=== PATIENT | male | born 1940 | race African-American/Black ===

== ENCOUNTER → 2017-05-30 | Outpatient (CLI) | payer MEDICARE, MEDICAID ==
[~2017-05-30] MED LIST: AMLO10TA80 PO; ASPI-1159 PO; FERR-63 PO; METF10002 PO; PRAV40TA58 PO
== END | disposition home or self-care (01) ==
LOC: NM 08:23
PROVIDERS: ATTEND Family Medicine Adult Medicine
DX: R16.0 Hepatomegaly, not elsewhere classified (principal)
CPT/HCPCS: 78205; 78216; A9560

== ENCOUNTER → 2017-11-23 | Outpatient (CLI) | payer MEDICARE, MEDICAID ==
[~2017-11-23] MED LIST changes: +METF-416 PO; -METF10002 PO
== END | disposition home or self-care (01) ==
LOC: NM 08:43
PROVIDERS: ATTEND Family Medicine Adult Medicine
DX: K76.89 Other specified diseases of liver (principal)
CPT/HCPCS: 78205; 78216; A9560

== ENCOUNTER 2018-08-07 08:21 | Day surgery (SDC) | payer MEDICARE, MEDICAID ==
[~2018-08-07] VITALS: Ht 175.3 cm; Wt 84.8 kg
[2018-08-07] VITALS (10 sets, daily range): BP systolic 169–176; BP diastolic 85–94
[~2018-08-07 08:21] MED LIST changes: -METF-416 PO; +METF10004 PO
[2018-08-07] MEDS ORDERED: FENTANYL CITRATE/PF 50MCG/ML 2ML VIAL ONE (08:35)
[2018-08-07] MEDS ORDERED: SODIUM BICARBONATE 4% (2.4MEQ) 5ML VIAL IV ONE (09:08)
[2018-08-07] MEDS ORDERED: LIDOCAINE HCL 1% 20ML VIAL (Pyxis) INJ ONE (09:08)
[2018-08-07] MEDS ORDERED: FENTANYL CITRATE/PF 50MCG/ML 2ML VIAL IV ONE (09:45)
[2018-08-07] MEDS ORDERED: HYDROCODONE/ACETAMINOPHEN 5/325MG TABLET PO PRN (09:45)
[2018-08-07 13:24] LABS: HEMATOCRIT 35.5 % (42.0-52.0); HEMOGLOBIN 12.2 g/dL (14.0-18.0)
== END 2018-08-07 14:00 | disposition home or self-care (01) ==
LOC: RAD 08:21
PROVIDERS: ATTEND Family Medicine Adult Medicine
DX: C22.8 Malignant neoplasm of liver, primary, unspecified as to type (principal); Z79.899 Other long term (current) drug therapy; Z98.890 Other specified postprocedural states; Z79.82 Long term (current) use of aspirin
CPT/HCPCS: 36415; 47000; 76942; 82962; 85014; 85018; 88307; J3010; J3490; J7050

== ENCOUNTER 2019-03-04 01:05 | Inpatient (IN) | payer MEDICARE, MEDICAID ==
[~2019-03-04] VITALS: Ht 175.3 cm; Wt 85.7 kg
[~2019-03-04 01:05] MED LIST changes: +METF-416 PO; -METF10004 PO
[2019-03-04 02:51] LABS: BASOPHILS % 0.7 % (0.0-2.0); EOSINOPHILS % 2.6 % (0.0-5.0); HEMATOCRIT. 34.9 % (42.0-52.0); HEMOGLOBIN. 11.6 g/dL (14.0-18.0); LYMPHOCYTES % 14.5 % (20.0-50.0); MEAN CORPUSCULAR HEMOGLOBIN 29.3 pg (28.0-32.0); MEAN CORPUSCULAR VOLUME 88.3 fL (80.0-94.0); MEAN PLATELET VOLUME 6.8 fl (7.4-10.4); MONOCYTES % 10.6 % (2.0-8.0); NEUTROPHILS % 71.6 % (40.0-76.0); PLATELET 251 x1000/uL (130-400); RED BLOOD CELL COUNT 3.95 mill/uL (4.7-6.1); RED CELL DISTRIBUTION WIDTH 14.3 % (11.6-14.6)
[2019-03-04 02:56] LABS: CHLORIDE 108 mEq/L (98-107)
[2019-03-04 03:01] LABS: INR 1.1; PROTHROMBIN TIME 11.3 sec (9.6-11.0)
[2019-03-04] MEDS ORDERED: VANCOMYCIN 1 G PREMIX 200 ML IV SCH (04:15)
[2019-03-04] MEDS ORDERED: PIPERACILLIN/TAZOBACTAM 3.375GM/50ML PREMIX IV ONE (04:15)
[2019-03-04] MEDS ORDERED: DOCUSATE SODIUM 100MG CAPSULE PO PRN (05:15)
[2019-03-04] MEDS ORDERED: ACETAMINOPHEN 325MG TABLET PO PRN (05:15)
[2019-03-04] MEDS ORDERED: HYDROMORPHONE HCL/PF 2MG/ML CPJ IV PRN (05:15)
[2019-03-04] MEDS ORDERED: ONDANSETRON HCL 4MG/2ML INJ IV PRN (05:15)
[2019-03-04 08:00] VITALS: BP 158/73
[2019-03-04] MEDS ORDERED: PIPERACILLIN/TAZ 3.375G PREMIX 50 ML IV SCH (08:00)
[2019-03-04] MEDS: DEXT 5%/0.45% NACL 1000ML 1,000 ML IV SCH (08:46)
[2019-03-04] MEDS: IPRATROPIUM/ALBUTEROL 0.5-3(2.5)MG/3ML NEB INH SCH ×3 (09:41→21:11)
[2019-03-04] MEDS ORDERED: DEXTROSE 50% WATER 50ML SYRINGE IV PRN (11:15)
[2019-03-04] MEDS: AMLODIPINE 10MG TABLET PO SCH (11:33)
[2019-03-04] MEDS ORDERED: HYDR-4009 PO (11:46)
[2019-03-04] MEDS ORDERED: LEVO750T46 MT (11:46)
[2019-03-04] MEDS ORDERED: HYDR-4135 MT (11:46)
[2019-03-04] MEDS ORDERED: BENA40TA9 MT (11:46)
[2019-03-04] MEDS ORDERED: SITA50TA3 MT (11:46)
[2019-03-04 12:01] VITALS: BP 153/73
[2019-03-04] MEDS: BLOOD SUGAR DIAGNOSTIC STRIP TEST SCH ×3 (12:20→21:10)
[2019-03-04] MEDS: FERROUS SULFATE 325MG TABLET PO SCH ×2 (14:44→18:56)
[2019-03-04] MEDS: INSULIN LISPRO 100 UNITS/ML SUBCUT SCH ×3 (14:46→21:53)
[2019-03-04 14:51] LABS: CLARITY URINE CLEAR (CLEAR); COLOR URINE YELLOW (YELLOW); KETONES URINE NEGATIVE (NEGATIVE); LEUKOCYTE ESTERASE URINE NEGATIVE (NEGATIVE); NITRITE URINE NEGATIVE (NEGATIVE); OCCULT BLOOD URINE NEGATIVE (NEGATIVE); PH URINE 5.5 (4.5-8.0); PROTEIN URINE TRACE (NEGATIVE); SPECIFIC GRAVITY URINE 1.011 (1.005-1.030); UROBILINOGEN URINE 0.2 E.U./dL (0.2-1.0)
[2019-03-04 16:18] VITALS: BP 169/75
[2019-03-04] MEDS ORDERED: VANCOMYCIN 1250MG in DEXTROSE 5% WATER 250ML IV SCH (18:00)
[2019-03-04] MEDS: METFORMIN HCL 500MG TABLET PO SCH (18:57)
[2019-03-04 20:00] VITALS: BP 166/87
[2019-03-04] MEDS: ATORVASTATIN CALCIUM 40MG TABLET PO SCH (21:10)
[2019-03-05] VITALS: BP 163/83
[2019-03-05] MEDS: IPRATROPIUM/ALBUTEROL 0.5-3(2.5)MG/3ML NEB INH SCH ×5 (01:27→21:21)
[2019-03-05 04:00] VITALS: BP 154/71
[2019-03-05] MEDS: DEXT 5%/0.45% NACL 1000ML 1,000 ML IV SCH ×2 (05:40→16:45)
[2019-03-05 06:21] LABS: BASOPHILS % 0.3 % (0.0-2.0); EOSINOPHILS % 2.8 % (0.0-5.0); HEMATOCRIT. 35.4 % (42.0-52.0); HEMOGLOBIN. 11.8 g/dL (14.0-18.0); LYMPHOCYTES % 13.5 % (20.0-50.0); MEAN CORPUSCULAR HEMOGLOBIN 29.5 pg (28.0-32.0); MEAN CORPUSCULAR VOLUME 88.9 fL (80.0-94.0); MEAN PLATELET VOLUME 7.1 fl (7.4-10.4); MONOCYTES % 10.5 % (2.0-8.0); NEUTROPHILS % 72.9 % (40.0-76.0); PLATELET 231 x1000/uL (130-400); RED BLOOD CELL COUNT 3.98 mill/uL (4.7-6.1); RED CELL DISTRIBUTION WIDTH 14.5 % (11.6-14.6)
[2019-03-05] MEDS: BLOOD SUGAR DIAGNOSTIC STRIP TEST SCH ×4 (06:30→20:54)
[2019-03-05 06:45] LABS: CHLORIDE 107 mEq/L (98-107)
[2019-03-05 06:59] LABS: LDL CHOLESTEROL 95 mg/dL (5-100)
[2019-03-05 07:04] LABS: HDL CHOLESTEROL 49 mg/dL (40-59)
[2019-03-05] MEDS: INSULIN LISPRO 100 UNITS/ML SUBCUT SCH ×4 (07:39→22:10)
[2019-03-05 08:00] VITALS: BP 155/64
[2019-03-05] MEDS: FERROUS SULFATE 325MG TABLET PO SCH ×3 (08:37→16:52)
[2019-03-05] MEDS: METFORMIN HCL 500MG TABLET PO SCH ×2 (08:37→16:52)
[2019-03-05] MEDS: AMLODIPINE 10MG TABLET PO SCH (08:38)
[2019-03-05] MEDS: CLONIDINE 0.1MG TABLET PO PRN ×2 (10:39→20:54)
[2019-03-05] MEDS ORDERED: GENTAMICIN SULF 40MG/ML 2ML VIAL ONE (11:11)
[2019-03-05] MEDS ORDERED: LIDOCAINE HCL 1% 20ML VIAL (Pyxis) INJ ONE (11:11)
[2019-03-05] MEDS ORDERED: BACITRACIN 50,000 UNITS/VIAL ONE (11:12)
[2019-03-05] MEDS ORDERED: NORMAL SALINE 0.9% 10 ML SYR ONE (11:12)
[2019-03-05] MEDS ORDERED: BUPIVACAINE HCL/PF 0.5% (5MG/ML) 10ML ONE (11:12)
[2019-03-05] MEDS ORDERED: FENTANYL CITRATE/PF 50MCG/ML 2ML VIAL IV PRN (12:30)
[2019-03-05] MEDS ORDERED: ONDANSETRON HCL 4MG/2ML INJ IV PRN (12:30)
[2019-03-05] MEDS ORDERED: MEPERIDINE HCL/PF 25MG/ML CPJ IV PRN (12:30)
[2019-03-05 16:00] VITALS: BP 153/63
[2019-03-05 20:00] VITALS: BP 166/76
[2019-03-05] MEDS: ATORVASTATIN CALCIUM 40MG TABLET PO SCH (20:54)
[2019-03-06] VITALS: BP 150/78
[2019-03-06] MEDS: IPRATROPIUM/ALBUTEROL 0.5-3(2.5)MG/3ML NEB INH SCH ×2 (02:13→10:02)
[2019-03-06 04:00] VITALS: BP 185/75
[2019-03-06] MEDS: CLONIDINE 0.1MG TABLET PO PRN (04:53)
[2019-03-06] MEDS: BLOOD SUGAR DIAGNOSTIC STRIP TEST SCH (06:28)
[2019-03-06] MEDS: INSULIN LISPRO 100 UNITS/ML SUBCUT SCH (07:50)
[2019-03-06 08:00] VITALS: BP 158/82
[2019-03-06] MEDS: AMLODIPINE 10MG TABLET PO SCH (08:04)
[2019-03-06] MEDS: METFORMIN HCL 500MG TABLET PO SCH (08:04)
[2019-03-06] MEDS: FERROUS SULFATE 325MG TABLET PO SCH (08:04)
[2019-03-06] MEDS: DEXT 5%/0.45% NACL 1000ML 1,000 ML IV SCH (08:05)
[2019-03-06] MEDS ORDERED: LISINOPRIL 10MG TABLET PO SCH (10:30)
[2019-03-06 10:54] VITALS: BP 154/68
== END 2019-03-06 11:26 | disposition home health service (06) | DRG 617 ==
LOC: ER 01:05 → 6EST 04:10 → EDBEDREQ 04:23 → EDBEDREQTM 04:23 → ENRESERV 05:30
PROVIDERS: ADMIT Internal Medicine Nephrology; ATTEND Internal Medicine Nephrology
PROC: 0Y6S0Z0 Detachment at Left 2nd Toe, Complete, Open Approach (ICD-10-PCS; principal; 2019-03-05)
DX: E11.69 Type 2 diabetes mellitus with other specified complication (principal); M86.8X7 Other osteomyelitis, ankle and foot; C25.9 Malignant neoplasm of pancreas, unspecified; E11.621 Type 2 diabetes mellitus with foot ulcer; E11.40 Type 2 diabetes mellitus with diabetic neuropathy, unspecified; I10 Essential (primary) hypertension; E78.5 Hyperlipidemia, unspecified; L97.529 Non-pressure chronic ulcer of other part of left foot with unspecified severity; Z79.899 Other long term (current) drug therapy; Z79.82 Long term (current) use of aspirin
CPT/HCPCS: 36415; 73630; 73721; 80048; 80061; 82962; 84484; 85651; 86140; 87070; 87075; 88305; 88311; 93306; 93923; 93970; 94640; 96365; 97162; 99285; J1580; J1815; J2543; J3370; J3490; J7060; J7620

== ENCOUNTER → 2019-07-29 | Day surgery (SDC) | payer MEDICARE, MEDICAID ==
[~2019-07-29] MED LIST changes: -ASPI-1159 PO; +ASPI-1393 PO; +BENA40TA9 MT; +HYDR-4009 PO; +HYDR-4135 MT; +LEVO750T46 MT; +LIDOCAINE HCL 1% 20ML VIAL (Pyxis) INJ ONE; +SITA50TA3 MT; +SODIUM BICARBONATE 4% (2.4MEQ) 5ML VIAL IV ONE
== END | disposition home or self-care (01) ==
LOC: RAD 10:18
PROVIDERS: ATTEND Internal Medicine Hematology & Oncology
DX: R18.8 Other ascites (principal); R10.9 Unspecified abdominal pain; C25.0 Malignant neoplasm of head of pancreas; D47.2 Monoclonal gammopathy; Z79.82 Long term (current) use of aspirin; Z79.899 Other long term (current) drug therapy; Z79.84 Long term (current) use of oral hypoglycemic drugs
CPT/HCPCS: 49083; J3490